=== PATIENT | male | born 1940 | race Caucasian/White ===

== ENCOUNTER 2017-04-12 08:09 | Observation (INO) | payer OTHER ==
[~2017-04-12] VITALS: Ht 185.4 cm; Wt 99.8 kg
[2017-04-12] VITALS (13 sets, daily range): BP systolic 104–152; BP diastolic 46–83
[~2017-04-12 08:09] MED LIST: ALLOPURINOL 30300 M2 PO; AMLODIPINE-BEN1 EACH PO; ASPIRIN325 PO; BRILINTA90 MG PO; IMDUR 30 MG TAB30 M1 PO; IRON325 PO; LOPRESSOR25 PO; NITROGLYCERIN0.4 MG SUBLING; PLAVIX 75 MG TA75 M1 PO; PROSCAR 5MG TABL5 MG PO; PROTONIX 20 MG20 M1 PO; RANEXA1000 MG PO; TERAZOSIN HCL10 MG PO; TYLENOL325 MG PO; ZETIA10 MG PO
[2017-04-12 08:56] LABS: HEMOGLOBIN 12.9 gm/dL (14.0-18.0); WBC 4.2 thou/uL (4.0-11.0)
[2017-04-12 08:59] LABS: ANION GAP 9 mmol/L (7-16); BUN 13 mg/dL (7-18); CALCIUM 8.6 mg/dL (8.5-10.1); CHLORIDE 107 mmol/L (98-107); CO2 26 mmol/L (21-32); CREATININE 1.2 mg/dL (0.6-1.3); GLUCOSE 99 mg/dL (70-99); HEMATOCRIT 38.5 % (42.0-52.0); MCH 28.5 pg (26.0-34.0); MCHC 33.5 g/dL (28.0-37.0); MCV 85.2 fL (80.0-100.0); MPV 7.9 fl. (7.2-11.1); POTASSIUM 3.8 mmol/L (3.5-5.1); RBC 4.52 mil/uL (4.50-6.00); RDW-CV 15.4 % (10.5-14.5); SODIUM 142 mmol/L (136-145)
[2017-04-12 09:02] LABS: APTT 25.2 Seconds (25.0-31.3)
[2017-04-12] MEDS ORDERED: PLAVIX 75 MG TA75 M1 PO (09:09)
[2017-04-12 09:11] LABS: ALBUMIN 3.7 g/dL (3.4-5.0); ALKALINE PHOSPHATASE 84 U/L (46-116); CHOLESTEROL 198 mg/dL (<200); HDL CHOLESTEROL 38 mg/dL (>40); LDL CHOLESTEROL 129 mg/dL (<100); SGOT 13 U/L (15-37); SGPT 17 U/L (30-65); TC:HDL 5.2 Ratio (Not establshd); TOTAL BILIRUBIN 0.4 mg/dL (<0.1-1.0); TOTAL PROTEIN 7.8 g/dL (6.4-8.2); TRIGLYCERIDE 158 mg/dL (<150); VLDL 32 mg/dL (<40)
[2017-04-12 09:16] LABS: SERUM ASSESSMENT Clear
--- NOTE | 2017-04-12 12:14 | NUR ---
PT ARRIVED TO THE FLOOR FROM ORTHOTIC/PROSTHETIC CLINICIAN AT 1127. PT IS A&O X4 W/O C/O PAIN OR DISCOMFORT. PT VSS ON ROOM AIR. PT ORIENTED TO UNIT AND SERVICES, FOOD AND DRINK OFFERED. PT EDUCATED ON POST PROCEDURE PROTOCOL AND VERBALIZES UNDERSTANDING. PROCEDURE SITE INTACT AND NO S/S OF BLEEDING. NURSING ASSESSMENT AND MEDICATION REQ. COMPLETED AND CHARTED. NURSING WILL CONTINUE TO MONITOR.
--- NOTE | 2017-04-12 15:48 | EKG ---
[place] [address] ELECTROCARDIOGRAM REPORT Name: RAVI FALK Room: [address] IN M.R.#: [id number] Admission: 04/12/17 Attend Phys: Jose Haider MD, Discharge: Date of : 38 Report #: [id number] THIS REPORT FOR: //name// [facility] Test Date: 2017-04-12 Test Time: 08:58:02 Pat Name: RAVI FALK Department: Room: [facility] Gender: M Stitchdowns Toe Former: : 1940 Requested By: Jose Haider Order Number: [id number] Liliya MD: Jose Haider Measurements Intervals [place] Rate: 63 P: 13 [place]: 175 QRS: 17 QRSD: 94 T: 58 QT: 404 QTc: 414 Interpretive Statements Sinus rhythm Low voltage, extremity leads Electronically Signed On 04-12-2017 15:48:26 DIE STORAGE WORKER by Jose Haider [email or web address] <ELECTRONICALLY SIGNED> By: Jose Haider MD, [facility] 04/12/17 1548 0858 0858 Jose Haider MD, FACC /EPI
--- NOTE | 2017-04-12 15:54 | EKG ---
[place] [address] ELECTROCARDIOGRAM REPORT Name: RAVI FALK Room: [address] IN M.R.#: [id number] Admission: 04/12/17 Attend Phys: Jose Haider MD, Discharge: Date of : 38 Report #: [id number] THIS REPORT FOR: //name// [facility] Test Date: 2017-04-12 Test Time: 14:11:06 Pat Name: RAVI FALK Department: Room: [facility] Gender: M Monotype Caster: : 1940 Requested By: Jose Haider Order Number: [id number] Liliya MD: Jose Haider Measurements Intervals [place] Rate: 59 P: -7 [place]: 175 QRS: -2 QRSD: 85 T: 70 QT: 411 QTc: 408 Interpretive Statements Sinus rhythm Low voltage, extremity leads Compared to ECG 12/27/2016 09:03:33 No significant changes Electronically Signed On 04-12-2017 15:54:30 DRYWALL CARRIER by Jose Haider [email or web address] <ELECTRONICALLY SIGNED> By: Jose Haider MD, [facility] 04/12/17 1554 141 141 Jose Haider MD, FAC /EPI
--- NOTE | 2017-04-12 18:46 | NUR ---
PT CONTINUES TO BE A&O X4 CALM AND COOPERATIVE. PT HAS AHD NO C/O PAIN OR DISTRESS, VSS. PT CATH SITE LOOKS UNREMARKABLE WITH NO DRAINAGE AND SURROUNDING TISSUE SOFT. NURSING WILL CONTINUE TO MONITOR.
[2017-04-13 00:02] VITALS: BP 113/59
--- NOTE | 2017-04-13 01:39 | NUR ---
ASSUMED CARE OF PT AT 1900. PT IS ALERT AND ORIENTED. VSS. PERRLA. NO COMPLAINTS OF CHEST PAIN. PT IS IN SINUS RYTHM ON THE TELEMETRY. PT IS RESTING COMFORTABLY IN BED. RESPIRATIONS ARE EVEN AND NONLABORED. WILL CONTINUE TO MONITOR PT.
[2017-04-13 04:05] VITALS: BP 110/60
[2017-04-13 05:36] LABS: HEMATOCRIT 32.8 % (42.0-52.0); HEMOGLOBIN 11.2 gm/dL (14.0-18.0); MCH 28.9 pg (26.0-34.0); MCHC 34.2 g/dL (28.0-37.0); MCV 84.7 fL (80.0-100.0); MPV 7.9 fl. (7.2-11.1); RBC 3.87 mil/uL (4.50-6.00); RDW-CV 15.1 % (10.5-14.5); WBC 4.3 thou/uL (4.0-11.0)
[2017-04-13 05:56] LABS: CALCIUM 8.4 mg/dL (8.5-10.1); CREATININE 1.2 mg/dL (0.6-1.3); POTASSIUM 4.1 mmol/L (3.5-5.1); TROPONIN-I LEVEL 0.2 ng/mL (<0.06)
[2017-04-13 08:00] VITALS: BP 122/66
[2017-04-13 10:00] VITALS: BP 119/63
[2017-04-13 10:16] VITALS: BP 119/63
--- NOTE | 2017-04-13 14:06 | NUR ---
ORDER RECEIVED TO DISCAHRGE CISCO TO SELF CARE AT HOME. MED REC, MEDICATION EDUCATION, STROKE EDUCATION, AMD NEED FOR FOLLOW UP APPOINTMENTS WITH PRIMARY AND CARDIOLOGY COVERED AND STATED UNDERSTOOD BY CISCO. IV AND TELEMTRY REMOVED AND CISCO AMBULATED TO AWAITNG CAR WITH SPOUSE PRESENT. DC TIME OF 12:10. HOURLY ROUNDING COMPLETED FOR PATIENT SAFETY.
--- NOTE | 2017-04-14 11:24 | CARD ---
[address] [address] CARDIAC CATH REPORT Name: RAVI FALK Shanna Room: [address] [place] Mariee#: [id number] Admission: 04/12/17 Attend Phys: Jose Haider MD, Discharge: 04/13/17 Date of : 39 Report #: [id number] THIS REPORT FOR: //name// APPROVED REPORT Patient Details Patient Status: Out-Patient Room #: The patient is a 76 year-old male Event Personnel Jose Haider Athlete Manager, Kay Cabello RN Business Project Manager, Eugenia Harris Monitor, Prisca Paige RTR Scrub Procedures Performed Art Access - L femoral artery* , Left Heart Catheterization, Selective Right and Left Coronary Angiography fractional flow reserve calculated pertinent to a moderately severe tubular mid right coronary stenosis, PTCA with Stenting Indication Unstable angina Risk Factors Hypercholesterolemia, Hypertension Admission/Lab Medications/Medications given during procedure Platelet Aff. Inhib., Angiomax bolus and infusion Procedure Narrative The patient was brought electively to the Cardiac Catheterization Laboratory and was prepped and draped in a sterile manner. The left femoral was infiltrated with 1% Lidocaine subcutaneous anesthesia. A [place] 6 FR sheath was inserted into the left femoral artery. Coronary angiography was performed using coronary diagnostic catheters. The right coronary system was accessed and visualized with a Diagnostic JR 4 6FR catheter. The left coronary system was accessed and visualized with a Diagnostic JL 4 6FR catheter. The left ventricle was accessed and visualized with a Diagnostic catheter. Left ventricular/Aortic Valve gradient assessed . Left ventriculogram was performed in [place] projection. Pre-demployment femoral angiogram was performed . Closure device was deployed with a 6 Fr Angioseal. The patient tolerated the procedure well and there were no complications associated with the procedure. Intraoperative [place] [address] CARDIAC CATH REPORT Name: RAVI FALK Shanna Room: [address] [place] Mariee#: [id number] Admission: 04/12/17 Attend Phys: Jose Haider MD, Discharge: 04/13/17 Date of : 39 Report #: [id number] Sedation start time: 09:54 Case end Time: 11:01 Fentanyl 25 mcg Versed 1 mg Fluoro Time: 9.0 minutes Dose: DAP 869808 cGycm2 1453.79 mGy Contrast Type and Amount: Visipaque 330 ml Diagnostic Cath Left Main 0% narrowing LAD Widely patent mid LAD stents with 40% distal LAD narrowing Circumflex Widely patent mid circumflex stents with 75% very distal circumflex narrowing Right Coronary Dominant vessel with 75% tubular mid vessel narrowing and 50% narrowing at the acute margin Left Ventriculography The left ventricle is normal in size with normal contractility. The left ventricular ejection fraction is estimated to be 55%. There is no mitral insufficiency. IVUS Anticoagulation was achieved with Heparin. Fractional Flow [place] was performed on the mid right coronary artery vessel. A 6 Italian JR4 Guide Catheter was used to engage the ostium. IVUS Findings Fractional flow reserve was .81-83 after a short course of adenosine infusion; the patient did not tolerate adenosine well and the extended infusion was truncated. Hemodynamics The aortic pressure is 144/62 mmHg with a mean of mmHg. The left ventricular pressure is 145/6 mmHg with a mean of mmHg. The left ventricular end diastolic pressure is 16 mmHg. There was no gradient across the aortic valve upon pullback. PCI Technique Lesion Anticoagulation was achieved with Heparin. Percutaneous coronary intervention was performed on the proximalmid right coronary artery. The lesion stenosis prior to intervention was 75% with JORDYN flow. A 6F JR 4.0 Guide Catheter was used to engage the RCA ostium. A Pressure Wire 175cm Interventional Guidewire was used [place] [address] CARDIAC CATH REPORT Name: RAVI FALK Room: [address] [place]#: [id number] Admission: 04/12/17 Attend Phys: Jose Haider MD, Discharge: 04/13/17 Date of : 39 Report #: [id number] BALLOON DILATION A Balloon catheter Trek RX 2.5 X 20 was inserted and inflated up to 14.00atm for 14seconds. STENT DEPLOYMENT A drug-eluting stent Xience Alpine RX 2.75 x 23 was inserted and inflated up to 12.00atm for 16seconds. Additional Inflation: 14.00atm for 14seconds. Final angiography reveals 0 % stenosis with JORDYN 3 flow. PCI Technique Lesion The lesion stenosis prior to intervention was mid right coronary artery% with JORDYN 6 Italian JR4 flow. BALLOON DILATION A Balloon catheter Fractional flow reserve was .81-83 after a short course of adenosine infusion; the patient did not tolerate adenosine well and the extended infusion was truncated. was inserted and inflated up to beto for seconds. Conclusion #1 significant coronary artery disease characterized by following: A widely patent mid LAD stents with 40% distal LAD narrowing, B widely patent mid circumflex stents with 75% very distal circumflex narrowing, C dominant right coronary artery with 75% proximalmid vessel narrowing and 50% narrowing at the acute margin #2 borderline abnormal fractional flow reserve calculated pertinent to the proximalmid right coronary stenosis with a minimum value 0.81 with a truncated infusion of adenosine, #3 normal left ventricular systolic function, estimate ejection fraction being 55%, #4 successful percutaneous coronary intervention with deployment of drug-eluting stent at site of 75% tubular proximalmid right coronary stenosis with 0% residual following stent deployment and JORDYN-3 flow the distal vessel. Recommendations [place] [address] CARDIAC CATH REPORT Name: RAVI FALK Room: [address] [place] Mariee#: [id number] Admission: 04/12/17 Attend Phys: Jose Haider MD, Discharge: 04/13/17 Date of : 38 Report #: [id number] Medications Administered Clopidogrel <ELECTRONICALLY SIGNED> By: Jose Haider MD, FACC 04/14/17 1124 1124 1124Jodom Haider MD, FAC /INF
--- NOTE | 2017-04-14 13:38 | D ---
[address] [address] DISCHARGE SUMMARY Name: RAVI FALK Room: [address] [place] Mariee#: [id number] Admission: 04/12/17 Attend Phys: Jose Haider MD, Discharge: 04/13/17 Date of : 39 Report #: [id number] THIS REPORT FOR: //name// CC: Jose Valenzuela DO DATE OF SERVICE: 04/13/2017 FINAL DISCHARGE DIAGNOSES: 1. Unstable angina. 2. Status post percutaneous coronary intervention to the right coronary artery on 04/12/2017. 3. Status post multiple prior percutaneous coronary intervention to the left anterior descending and circumflex. 4. Multivessel coronary artery disease. 5. Benign prostatic hypertrophy. 6. Hyperlipoproteinemia. 7. Hypertension. 8. Asthma allergy. PROCEDURES: 04/12/2017 - left heart catheterization, left ventriculography, selective coronary arteriography, fractional flow reserve calculated pertinent to right coronary lesion and percutaneous coronary intervention with deployment of drug-eluting stent at the site of 75% tubular mid right coronary artery stenosis. The patient is a very pleasant 76-year-old male with underlying hypertension, hypercholesterolemia. He has a history of multivessel coronary artery disease, status post remote stenting of the LAD and circumflex. More recently, he has noted increasing episodes of chest discomfort and dyspnea with exertion compatible with angina following an unstable course. He has been participating in cardiac rehabilitation activities regularly. He does have some dyspnea in the setting of his obstructive airways disease. He underwent cardiac catheterization on 04/12/2017 which revealed tubular 75% mid right coronary stenosis with FFR calculated with a minimal value of 0.81 with the test being truncated by virtue of marked dyspnea on adenosine infusion. Given the clinical history and the borderline evidence by fractional flow reserve, I elected to proceed with intervention of the right coronary artery, deploying 1 drug-eluting stent in mid right coronary with 0% residual narrowing. The previously deployed stents in the LAD and circumflex were widely patent. The patient did well post-procedurally and there was good hemostasis at the femoral site of catheterization. Lab revealed hemoglobin 11.2, white blood cell count 4300 with 201,000 platelets. Sodium 144, potassium 4.1, BUN 12, [place] [address] DISCHARGE SUMMARY Name: RAVI FALK Room: [address] [place] Mariee#: [id number] Admission: 04/12/17 Attend Phys: Jose Haider MD, Discharge: 04/13/17 Date of : 39 Report #: [id number] creatinine 1.2. Troponin peaked at 0.29. The patient was discharged to home on 04/13/2017 on the following medications: Clopidogrel or Plavix 75 mg daily with a 600 mg dose given jose-procedurally, Zetia 10 mg daily, Proscar 5 mg daily, metoprolol 25 mg daily, p.r.n. sublingual nitroglycerin, pantoprazole 40 mg b.i.d., terazosin 10 mg at bedtime, and p.r.n. sublingual nitroglycerin. The patient is scheduled to return to see me in followup on 05/16/2017 at 1400. He is discharged home in stable condition on the aforementioned medications with followup as iterated above. <ELECTRONICALLY SIGNED> By: Jose Haider MD, FACC 04/14/17 1338 1600 [id number] Haider MD, FAC /nt
--- NOTE | 2017-04-14 14:09 | EKG ---
[place] [address] ELECTROCARDIOGRAM REPORT Name: RAVI FALK Room: [address] M.R.#: [id number] Admission: 04/12/17 Attend Phys: Jose Haider MD, Discharge: 04/13/17 Date of : 39 Report #: [id number] THIS REPORT FOR: //name// [facility] Test Date: 2017-04-13 Test Time: 06:40:42 Pat Name: RAVI FALK Department: Room: [facility] Gender: M Paving Supervisor: EKATERINA : 1940 Requested By: Jose Haider Order Number: [id number] Liliya MD: Jose Haider Measurements Intervals [place] Rate: 59 P: 12 [place]: 168 QRS: 16 QRSD: 88 T: 70 QT: 426 QTc: 422 Interpretive Statements Sinus rhythm Low voltage, extremity leads Compared to ECG 04/12/2017 14:11:06 No significant changes Electronically Signed On 04-14-2017 14:09:13 CUPOLA MELTER HELPER by Jose Haider [email or web address] <ELECTRONICALLY SIGNED> By: Jose Haider MD, [facility] 04/14/17 1409 0640 Jose Haider MD, [facility] /EPI
== END 2017-04-13 12:05 | disposition home or self-care (01) ==
LOC: M.CL 08:09 → M.2W 11:16 → M.TBA-CV 11:16 → M.2W 11:20
PROVIDERS: ADMIT Internal Medicine
DX: I25.119 Atherosclerotic heart disease of native coronary artery with unspecified angina pectoris (principal); I25.110 Atherosclerotic heart disease of native coronary artery with unstable angina pectoris; I10 Essential (primary) hypertension; E78.5 Hyperlipidemia, unspecified; J43.1 Panlobular emphysema; N40.0 Benign prostatic hyperplasia without lower urinary tract symptoms; J45.909 Unspecified asthma, uncomplicated; Z98.890 Other specified postprocedural states; Z87.891 Personal history of nicotine dependence; Z95.5 Presence of coronary angioplasty implant and graft

== ENCOUNTER 2018-03-27 11:08 | Inpatient (IN) | payer OTHER ==
[~2018-03-27] VITALS: Ht 185.4 cm; Wt 99.3 kg
[2018-03-27] VITALS (13 sets, daily range): BP systolic 125–173; BP diastolic 62–84
[2018-03-27] MEDS ORDERED: CIPRO500 MG PO (13:09)
--- NOTE | 2018-03-27 13:36 | NUR ---
PT TO UNIT VIA EMS AT APPROX 1245. PT IS ALERT AND ORIENTED, TELE TRACKING NSR AND ALL VSS ON ROOM AIR. PT CURRENTLY DENYING CP, STATES GI COCKTAIL GIVEN AT [facility]SH RELIEVED PAIN. TACK CLEANER NOTIFIED OF PT ADMIT AT 1330. WILL AWAIT FURTHER ORDERS. INSTRUCTED ON USE OF CALL LIGHT ANDEDUCATED ON SAFETY AND PLAN OF CARE. PLEASE SEE ADMISSION ASSESSMENT FOR ADDITIONAL INFORMATION. WILL CONTINUE TO MONITOR
--- NOTE | 2018-03-27 16:24 | H ---
[place] [address] HISTORY AND PHYSICAL Name: RAVI FALK Room: [address] IN .Srinivas.#: [id number] Admission: 03/27/18 Attend Phys: Jose Haider MD, Discharge: Date of : 38 Report #: [id number] THIS REPORT FOR: //name// CC: Jose Mustafa [facility] DATE OF SERVICE: 03/27/2018 HISTORY OF PRESENT ILLNESS: The patient is a 77-year-old male with known coronary artery disease, status post prior multivessel stenting, most recently in 04/2017 to the right coronary artery. He awakened this morning with severe central chest discomfort and profuse diaphoresis. He sought assistance in the [facility] Emergency Room for relief, came after administration of nitrates and GI cocktail. He had no early enzymatic or electrocardiographic evidences of acute injury. The pain remitted after nitrates and has not recurred. He does have risk factors for coronary artery disease including prior cigarette smoking, hypertension and hypercholesterolemia. MEDICATIONS: Have included Plavix 75 mg daily, Zetia 5 mg daily, metoprolol 12.5 mg b.i.d., pantoprazole 40 mg daily, terazosin 10 mg daily. 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 SOCIAL HISTORY: The patient is . He has a significant antecedent cigarette smoking history. FAMILY HISTORY: Negative for premature coronary artery disease. REVIEW OF SYSTEMS: Remarkable for the following positives, GASTROINTESTINAL: He notes chronic gastroesophageal reflux with pain different from that he experienced this morning. PULMONARY: He notes chronic dyspnea and recent bronchitis in the setting of obstructive airways disease. Remainder is unremarkable. PHYSICAL EXAMINATION: GENERAL: Demonstrates an elderly male who is alert, cheerful and in no acute distress. VITAL SIGNS: Blood pressure 130/70, pulse rate 74, respirations 18 per minute. NECK: Jugular venous pressure is normal. CHEST: Reveals decreased breath sounds with occasional rhonchi. CARDIAC: Reveals normal first and second heart sounds [place] [address] HISTORY AND PHYSICAL Name: RAVI FALK Room: [address] IN [facility]#: [id number] Admission: 03/27/18 Attend Phys: Jose Haider MD, Discharge: Date of : 38 Report #: [id number] ABDOMEN: Mildly obese. EXTREMITIES: Without edema with intact femoral and radial pulses. RADIOLOGIC DATA: Initial EKG reveals no acute changes suggesting injury. LABORATORY DATA: Reveals sodium 140, potassium 3.6, BUN 12, creatinine 1.2. Troponin 0.012. BNP 53. Protime 12.7, INR 1.1. Hemoglobin 13.7, platelets 171,000. IMPRESSION: 1. Probable acute coronary syndrome. 2. Coronary artery disease, status post multivessel stenting. 3. Chronic obstructive pulmonary disease. 4. Hypertension. 5. Hyperlipidemia. 6. Prolonged antecedent cigarette smoking history. RECOMMENDATIONS: Given the aforementioned clinical scenario, I would recommend urgent catheterization with consideration of intervention contingent on the findings of the study. This has been discussed with the patient and family. <ELECTRONICALLY SIGNED> By: Jose Haider MD, FACC 03/27/18 1624 1423 1438Jodom Haider MD, FACC /nt
[2018-03-28] VITALS (7 sets, daily range): BP systolic 127–144; BP diastolic 64–72
[2018-03-28 05:12] LABS: HEMATOCRIT 35.9 % (42.0-52.0); HEMOGLOBIN 12.1 gm/dL (14.0-18.0); MCH 29.5 pg (26.0-34.0); MCHC 33.8 g/dL (28.0-37.0); MCV 87.1 fL (80.0-100.0); MPV 8.3 fl. (7.2-11.1); RBC 4.12 mil/uL (4.50-6.00); RDW-CV 14.4 % (10.5-14.5); WBC 4.6 thou/uL (4.0-11.0)
[2018-03-28 05:32] LABS: ALKALINE PHOSPHATASE 69 U/L (46-116); ANION GAP 8 mmol/L (7-16); BUN 10 mg/dL (7-18); CALCIUM 8.5 mg/dL (8.5-10.1); CHLORIDE 107 mmol/L (98-107); CHOLESTEROL 116 mg/dL (<200); CO2 27 mmol/L (21-32); CREATININE 1.1 mg/dL (0.6-1.3); GLUCOSE 93 mg/dL (70-99); HDL CHOLESTEROL 29 mg/dL (>40); LDL CHOLESTEROL 74 mg/dL (<100); POTASSIUM 4.1 mmol/L (3.5-5.1); SGOT 14 U/L (15-37); SGPT 19 U/L (30-65); SODIUM 142 mmol/L (136-145); TOTAL BILIRUBIN 0.5 mg/dL (<0.1-1.0); TOTAL PROTEIN 6.4 g/dL (6.4-8.2); TRIGLYCERIDE 69 mg/dL (<150); TROPONIN-I LEVEL <0.06 ng/mL (<0.06); VLDL 14 mg/dL (<40)
[2018-03-28 05:34] LABS: SERUM ASSESSMENT Clear
--- NOTE | 2018-03-28 08:01 | NUR ---
RECEIVED REPORT AND ASSUMED CARE AT 1900. VSS. CARDIAC MONITORING IN PLACE. PT DENIES ANY COMPLAINTS OF PAIN. PT ON BEDREST POST CATH UNTIL 0030. ON RA. ASSESSMENT COMPLETED CHARTED.DISCUSSED PLAN OF CARE WITH PT, VERBALIZED UNDERSTANDING. GROIN ACCESS MONITORED, CLEAN/DRY/INTACT DRESSING, NO HEMATOMA. HOURLY ROUNDING COMPLETED AND ALL NEEDS MET.
--- NOTE | 2018-03-28 11:23 | NUR ---
ASSUMED CARE OF PATIENT THIS AM AT 0730. PATIENT IS ALERT AND ORIENTED X 4. HE DENIES PAIN AND DISCOMFORT. LEFT GROIN SITE IS D&I AND WITHOUT HEMATOMA. TELE SHOWS NSR. DR DOZIER IN TO ROUND AND DISCHARGE ORDERS WRITTEN. SALINE LOCK AND TELE MONITOR DISCONTINUED AND PATIENT IS UP IN THE ROOM.
--- NOTE | 2018-03-28 18:07 | EKG ---
[place] [address] ELECTROCARDIOGRAM REPORT Name: DEYARAVI Otero Room: [address] IN M.R.#: [id number] Admission: 03/27/18 Attend Phys: Jose Haider MD, Discharge: 03/28/18 Date of : 38 Report #: [id number] THIS REPORT FOR: //name// [facility] Test Date: 2018-03-28 Test Time: 08:55:02 Pat Name: RAVI FALK Department: Room: [address] Gender: M Fulfillment Associate: : 1940 Requested By: Jose Haider Order Number: [id number] Liliya MD: Darryl Franklin Measurements Intervals [place] Rate: 72 P: 7 [place]: 166 QRS: 35 QRSD: 84 T: 52 QT: 379 QTc: 415 Interpretive Statements Sinus rhythm Low voltage, extremity leads Compared to ECG 04/13/2017 06:40:42 No significant changes Electronically Signed On 03-28-2018 18:06:55 CRYPTOLOGIC LINGUIST by Darryl Franklin [email or web address] <ELECTRONICALLY SIGNED> By: Darryl Franklin MD, [facility] 03/28/18 1806 0855 0855 Darryl Franklin MD, [facility] /EPI
--- NOTE | 2018-03-30 16:14 | D ---
[address] [address] DISCHARGE SUMMARY Name: RAVI FALK Room: [address] IN M.R.#: [id number] Admission: 03/27/18 Attend Phys: Jose Haider MD, Discharge: 03/28/18 Date of : 38 Report #: [id number] THIS REPORT FOR: //name// CC: Jose Valenzuela DATE OF SERVICE: 03/28/2018 FINAL DISCHARGE DIAGNOSES: 1. Unstable angina. 2. Coronary artery disease, status post prior percutaneous coronary intervention with stenting of the left anterior descending coronary artery on 03/27/2018. 3. Hypertension. 4. Hyperlipoproteinemia. 5. Emphysema. PROCEDURES: 03/27/2018 -- left heart catheterization, left ventriculography, selective coronary arteriography, percutaneous coronary intervention with deployment of drug-eluting stent at site of 80% proximal LAD stenosis. The patient is a very pleasant 77-year-old male with underlying hypertension, hyperlipidemia and chronic obstructive pulmonary disease. He has a history of complex coronary artery disease, status post prior multivessel stenting. He presented to [facility] Emergency Room yesterday morning with severe chest pain, nausea and diaphoresis. He had no acute EKG changes, it was felt that he had unstable angina. He was transferred urgently to us and underwent cardiac catheterization, which revealed 80% proximal LAD stenosis with hypokinesis of the anterior wall. He also had tandem 70% proximal and 75%-80% mid right coronary stenoses. Given the clinical findings and the abnormality on left ventriculography, I elected to proceed with percutaneous intervention to the LAD, deploying one 3.0 x 15 mm Xience Jagruti drug-eluting stent in the proximal LAD with 10% residual narrowing and JORDYN 3 flow of the distal vessel. He did well post-procedurally with good hemostasis at the left femoral site of catheterization. Laboratory data on 03/28/2018 revealed sodium 142, potassium 4.1, BUN 10, creatinine 1.1. Hemoglobin 12.1, white blood cell count 4600 with 171,000 platelets. Troponin less than 0.06. Cholesterol 116, triglycerides 69, HDL 29, LDL 74 mg percent. He was discharged to home on 03/28/2018 on the following medications: [place] [address] DISCHARGE SUMMARY Name: RAVI FALK Room: [address]#: [id number] Admission: 03/27/18 Attend Phys: Jose Haider MD, Discharge: 03/28/18 Date of : 38 Report #: [id number] 1. Ciprofloxacin 500 mg b.i.d. for additional 7 days in the context of recent acute bronchitis. 2. Clopidogrel 75 mg daily with 600 mg dose given periprocedurally. 3. Zetia 5 mg daily. 4. Finasteride or Proscar 5 mg daily. 5. Metoprolol tartrate 25 mg daily. 6. Pantoprazole 40 mg b.i.d. 7. Terazosin 10 mg at bedtime. 8. P.r.n. sublingual nitroglycerin. We will talk to him about scheduling for a staged intervention of the right coronary artery in April as discussed in detail with the patient and family. Thus, he is discharged home in stable condition on the aforementioned medications with followup as iterated above. His continuing care will be with Dr. Ramsey Valenzuela in [place]. <ELECTRONICALLY SIGNED> By: Jose Haider MD, FACC 03/30/18 1614 0935 [id number] Haider MD, FACC /nt
--- NOTE | 2018-03-31 12:23 | CARD ---
[address] [address] CARDIAC CATH REPORT Name: RAVI FALK Room: [address] IN .Srinivas.#: [id number] Admission: 03/27/18 Attend Phys: Jose Haider MD, Discharge: 03/28/18 Date of : 39 Report #: [id number] THIS REPORT FOR: //name// APPROVED REPORT Study performed: 03/27/2018 15:07:51 Patient Details The patient is a 77 year-old male Event Personnel Jose Haider Media Relations Coordinator, Kay Cabello RN RN, Savanna Alvarez RTR Monitor, Parvez Bosch Scrub, Clem Whitehead Scryasmin Procedures Performed Art Access - L femoral artery* Left Heart Cath w/or w/o Coronaries [facility] w/wo Plasty Single LAD Hemostasis w/ Angioseal Indication Unstable angina Risk Factors Hypercholesterolemia, Hypertension Previous Procedures/Diagnoses Previous PCI Admission/Lab Medications/Medications given during procedure Platelet Aff. Inhib., Angiomax bolus and infusion Procedure Narrative The patient was brought urgently to the Cardiac Catheterization Laboratory and was prepped and draped in a sterile manner. The left femoral was infiltrated with 2% Lidocaine subcutaneous anesthesia. A [place] 6 FR sheath was inserted into the right femoral artery. Coronary angiography was performed using coronary diagnostic catheters. The right coronary system was accessed and visualized with a Diagnostic 6Fr JR4 catheter. The left coronary system was accessed and visualized with a Diagnostic 6Fr JL4 catheter. The left ventricle was accessed and visualized with a Diagnostic 6Fr straight pigtail catheter. Left ventricular/Aortic Valve gradient assessed via catheter pullback. An aortogram of the [place] was performed. Closure device was deployed with a Fr Angioseal STS 6Fr. Hemostasis was obtained with manual pressure following sheath [place] [address] CARDIAC CATH REPORT Name: RAVI FALK Room: [address]#: [id number] Admission: 03/27/18 Attend Phys: Jose Haider MD, Discharge: 03/28/18 Date of : 39 Report #: [id number] complications. The patient tolerated the procedure well and there were no complications associated with the procedure. There was no hematoma. Intraoperative Conscious Sedation Sedation start time: 1510 Case end Time: 1603 No sedation given. Fluoro Time: 12.4 minutes Dose: DAP 61042 cGycm2 66.2 mGy Contrast Type and Amount: Visipaque 350 ml Diagnostic Cath Left Main 0% narrowing LAD 80% proximal stenosis with 30% mid and distal narrowings Diagonal 1 70% narrowing of the small vessel Diagonal 2 40 Percent narrowing Circumflex 40 Percent mid vessel narrowing with 40% second marginal narrowing Right Coronary Dominant vessel with tandem 75% proximal stenoses Left Ventriculography The left ventricle is normal in size with contractility. The left ventricular ejection fraction is estimated to be 55. Left ventricular wall motion abnormalities are present. There is no mitral insufficiency. Mild anterior hypokinesis is noted Hemodynamics The aortic pressure is 157/70 mmHg with a mean of 103 mmHg. The left ventricular pressure is 150/0 mmHg with a mean of mmHg. The left ventricular end diastolic pressure is 18 mmHg. There was no gradient across the aortic valve upon pullback. PCI Technique Lesion Percutaneous coronary intervention was performed on the proximal left anterior descending artery segment. The lesion stenosis prior to intervention was 80% with JORDYN 3 flow. A 6FR XB 3.5 100CM Guide Catheter was used to engage the ostium. A ProwaterFlex 180CM Interventional Guidewire was used to cross the lesion. BALLOON DILATION A Balloon catheter NC Trek RX 3.0 X 12 was inserted and inflated up to 16.00atm for 10seconds. Additional Inflation: 18.00atm for 13seconds. [place] [address] CARDIAC CATH REPORT Name: DEYARAVI Room: [address]#: [id number] Admission: 03/27/18 Attend Phys: Jose Haider MD, Discharge: 03/28/18 Date of : 39 Report #: [id number] STENT DEPLOYMENT A drug-eluting stent Xience Jagruti 3.0X15mm was inserted and inflated up to 15.00atm for 15seconds. Additional Inflation: 17.00atm for 13seconds. POST STENT DEPLOYMENT BALLOON DILATION A Balloon catheter NC Trek RX 3.0 X 8 was inserted and inflated up to 18.00atm for 13seconds. Additional Inflation: 16.00atm for 10seconds. Additional Inflation: 20.00atm for 11seconds. Final angiography reveals 0 % stenosis with JORDYN 3 flow. Conclusion #1 significant coronary artery disease characterized by the following: A 80% proximal LAD stenosis with 30% mid and distal narrowing B 40% mid circumflex proximal narrowing with 40% second marginal narrowing C tandem 75% proximal right coronary stenosis, this being a dominant vessel #2 normal left ventricular systolic function, estimate ejection fraction being 55% with mild anterior hypokinesis #3 modest elevation of left ventricular end-diastolic pressure at rest #4 successful percutaneous coronary intervention with deployment of a drug-eluting stent at the site of 80% proximal LAD stenosis with 0% residual narrowing and JORDYN-3 flow the distal vessel Recommendations Cardiac Risk Reduction Program Aggressive Medical Therapy Medications Administ[place] [address] CARDIAC CATH REPORT Name: RAVI FALK Room: [address] IN M.R.#: [id number] Admission: 03/27/18 Attend Phys: Jose Haider MD, Discharge: 03/28/18 Date of : 39 Report #: [id number] Diagnostic Cath Approved by: Jose Haider MD Date/Time: 03/31/2018 12:22:06 <ELECTRONICALLY SIGNED> By: Jose Haider MD, [facility] 03/31/18 1223 122 122Jose Haider MD, [facility] /INF
== END 2018-03-28 12:10 | disposition home or self-care (01) | DRG 246 ==
LOC: M.2W 11:08
PROVIDERS: ADMIT Internal Medicine
PROC: 4A023N7 Measurement of Cardiac Sampling and Pressure, Left Heart, Percutaneous Approach (ICD-10-PCS; principal; 2018-03-27)
PROC: 027034Z Dilation of Coronary Artery, One Artery with Drug-eluting Intraluminal Device, Percutaneous Approach (ICD-10-PCS; principal; 2018-03-27)
PROC: B2111ZZ Fluoroscopy of Multiple Coronary Arteries using Low Osmolar Contrast (ICD-10-PCS; principal; 2018-03-27)
PROC: B2151ZZ Fluoroscopy of Left Heart using Low Osmolar Contrast (ICD-10-PCS; principal; 2018-03-27)
DX: I25.110 Atherosclerotic heart disease of native coronary artery with unstable angina pectoris (principal); I50.33 Acute on chronic diastolic (congestive) heart failure; I11.0 Hypertensive heart disease with heart failure; E78.5 Hyperlipidemia, unspecified; E78.00 Pure hypercholesterolemia, unspecified; J43.9 Emphysema, unspecified

== ENCOUNTER 2018-04-18 08:30 | Observation (INO) | payer OTHER ==
[~2018-04-18] VITALS: Ht 185.4 cm; Wt 99.8 kg
[2018-04-18] VITALS (16 sets, daily range): BP systolic 123–169; BP diastolic 58–84
--- NOTE | ~2018-04-18 | H ---
[address] [address] HISTORY AND PHYSICAL Name: RAVI FALK Room: [address] [place] Mariee#: [id number] Admission: 04/18/18 Attend Phys: Jose Haider MD, Discharge: 04/19/18 Date of : 39 Report #: [id number] THIS REPORT FOR: //name// For History and Physical please refer to the dictated consultation note from 03/27/18 note in the patient's medical record. By: 1519[facility] Staff MORIAH /DEYSI
[~2018-04-18 08:30] MED LIST changes: +CIPRO500 MG PO
[2018-04-18 09:21] LABS: HEMATOCRIT 39.7 % (42.0-52.0); HEMOGLOBIN 13.4 gm/dL (14.0-18.0); MCH 29.1 pg (26.0-34.0); MCHC 33.7 g/dL (28.0-37.0); MCV 86.5 fL (80.0-100.0); MPV 8.3 fl. (7.2-11.1); RBC 4.59 mil/uL (4.50-6.00); RDW-CV 14.1 % (10.5-14.5); WBC 3.8 thou/uL (4.0-11.0)
[2018-04-18 09:27] LABS: ANION GAP 10 mmol/L (7-16); BUN 12 mg/dL (7-18); CALCIUM 9.5 mg/dL (8.5-10.1); CHLORIDE 105 mmol/L (98-107); CO2 28 mmol/L (21-32); CREATININE 1.2 mg/dL (0.6-1.3); GLUCOSE 99 mg/dL (70-99); POTASSIUM 3.8 mmol/L (3.5-5.1); SODIUM 143 mmol/L (136-145)
[2018-04-18 09:32] LABS: ALBUMIN 3.9 g/dL (3.4-5.0); ALKALINE PHOSPHATASE 80 U/L (46-116); CHOLESTEROL 166 mg/dL (<200); HDL CHOLESTEROL 41 mg/dL (>40); LDL CHOLESTEROL 103 mg/dL (<100); SERUM ASSESSMENT Clear; SGOT 11 U/L (15-37); SGPT 20 U/L (30-65); TOTAL BILIRUBIN 0.4 mg/dL (<0.1-1.0); TOTAL PROTEIN 7.8 g/dL (6.4-8.2); TRIGLYCERIDE 112 mg/dL (<150); VLDL 22 mg/dL (<40)
[2018-04-18 09:42] LABS: APTT 27.7 Seconds (25.0-31.3); PROTIME 10.1 Seconds (9.20-11.50)
--- NOTE | 2018-04-18 18:50 | EKG ---
[place] [address] ELECTROCARDIOGRAM REPORT Name: RAVI FALK Room: [address] M.R.#: [id number] Admission: 04/18/18 Attend Phys: Jose Haider MD, Discharge: Date of : 39 Report #: [id number] THIS REPORT FOR: //name// [facility] Test Date: 2018-04-18 Test Time: 12:13:23 Pat Name: RAVI FALK Department: Room: [facility] Gender: M [employer] F[employer] Instructor: : 1940 Requested By: Jose Haider Order Number: [id number] Liliya MD: Darryl Franklin Measurements Intervals [place] Rate: 52 P: 12 RI: 179 QRS: 42 QRSD: 85 T: 53 QT: 440 QTc: 410 Interpretive Statements Sinus rhythm Low voltage, extremity leads Minimal ST elevation, inferior leads Baseline wander in lead(s) II,III,aVR,aVL,aVF,V1,V2,V3,V4,V5,V6 Compared to ECG 03/28/2018 08:55:02 ST (T wave) deviation now present Electronically Signed On 04-18-2018 18:49:46 SHAPING MACHINE TENDER by Darryl Franklin [email or web address] <ELECTRONICALLY SIGNED> By: Darryl Franklin MD, FACC 04/18/18 1849 1213 1213 Darryl Franklin MD, [facility] /EPI
[2018-04-19] VITALS: BP 147/73
[2018-04-19 04:00] VITALS: BP 128/67
[2018-04-19 05:06] LABS: HEMATOCRIT 36.8 % (42.0-52.0); HEMOGLOBIN 12.3 gm/dL (14.0-18.0); MCH 29.2 pg (26.0-34.0); MCHC 33.5 g/dL (28.0-37.0); MCV 87.1 fL (80.0-100.0); MPV 8.2 fl. (7.2-11.1); RBC 4.23 mil/uL (4.50-6.00); RDW-CV 13.9 % (10.5-14.5); WBC 4.8 thou/uL (4.0-11.0)
[2018-04-19 05:21] LABS: ALBUMIN 3.1 g/dL (3.4-5.0); CALCIUM 9.1 mg/dL (8.5-10.1); CREATININE 1.1 mg/dL (0.6-1.3); POTASSIUM 3.6 mmol/L (3.5-5.1); TOTAL BILIRUBIN 0.4 mg/dL (<0.1-1.0); TOTAL PROTEIN 6.6 g/dL (6.4-8.2); TROPONIN-I LEVEL 0.26 ng/mL (<0.06)
[2018-04-19 08:13] VITALS: BP 131/80
[2018-04-19 10:32] VITALS: BP 127/62
[2018-04-19 10:43] VITALS: BP 127/62
--- NOTE | 2018-04-19 10:56 | CARD ---
[address] [address] CARDIAC CATH REPORT Name: ELLARAVI RAINES Shanna Room: [address] [place] Mariee#: [id number] Admission: 04/18/18 Attend Phys: Jose Haider MD, Discharge: Date of : 39 Report #: [id number] THIS REPORT FOR: //name// APPROVED REPORT Study performed: 04/18/2018 08:47:53 Patient Details Patient Status: Out-Patient Room #: The patient is a 77 year-old male Event Personnel Jose Haider Jig Boring Machine Operator For Metal, Marylou Ascencio RN Oriental Medicine Practitioner, Savanna Alvarez RTR Monitor, Clem Whitehead Scrub Procedures Performed Art Access - R femoral artery* [place] Place w/wo Plasty Single RCA [place] Place w/wo Plasty Single LAD Hemostasis w/ Angioseal Indication Unstable angina , Positive stress test Risk Factors Hypercholesterolemia, Hypertension Admission/Lab Medications/Medications given during procedure Platelet Aff. Inhib., Angiomax Drip IV 35 ml per hr, Angiomax IV 15 mg per kg Procedure Narrative The patient was brought electively to the Cardiac Catheterization Laboratory and was prepped and draped in a sterile manner. The right femoral was infiltrated with 2% Lidocaine subcutaneous anesthesia. A [place] 6 FR sheath was inserted into the right femoral artery. Coronary angiography was performed using coronary diagnostic catheters. The right coronary system was accessed and visualized with a Diagnostic 6Fr JR4 catheter. The left coronary system was accessed and visualized with a Diagnostic 6Fr JL4 catheter. The left ventricle was accessed and visualized with a Diagnostic 6Fr straight pigtail catheter. Left ventricular/Aortic Valve gradient assessed via catheter pullback. An aortogram of the [place] was performed. Closure device was deployed with a Fr Angioseal STS 6Fr. Hemostasis was obtained with manual pressure following [place] [address] CARDIAC CATH REPORT Name: RAVI FALK Room: [address] M.R.#: [id number] Admission: 04/18/18 Attend Phys: Jose Haider MD, Discharge: Date of : 39 Report #: [id number] complications. The patient tolerated the procedure well and there were no complications associated with the procedure. There was no hematoma. Intraoperative Conscious Sedation Sedation start time: 950 Case end Time: 1058 Fentanyl 75 mcg Versed 3 mg Fluoro Time: 1601 minutes Dose: DAP 048199 cGycm2 2265 mGy Contrast Type and Amount: Visipaque 330 Diagnostic Cath Left Main 0% narrowing LAD 30% proximal LAD narrowing with 80% focal mid LAD in-stent restenosis Circumflex Nondominant vessel with 40% mid vessel narrowing Right Coronary Dominant vessel with 75% proximal 80% mid and 80% mid to distal stenosis Left Ventriculography The left ventricle is normal in size with normal contractility. The left ventricular ejection fraction is estimated to be 60%. Left ventricular wall motion abnormalities are not present. There is no mitral insufficiency. Hemodynamics The aortic pressure is 146/70 mmHg with a mean of 101 mmHg. The left ventricular pressure is 146/2 mmHg with a mean of mmHg. The left ventricular end diastolic pressure is 16 mmHg. Pullback from the left ventricle to the aorta revealed no gradient across the aortic valve. PCI Technique Lesion Percutaneous coronary intervention was performed on the proximal right coronary artery. The lesion stenosis prior to intervention was 75% with JORDYN 3 flow. A 6F JR 4.0 Guide Catheter was used to engage the ostium. A [place] 190cm Interventional Guidewire was used to cross the lesion. BALLOON DILATION A Balloon catheter Trek RX 2.5 X 12 was inserted and inflated up to 16.00atm for 12seconds[place] [address] CARDIAC CATH REPORT Name: DEYARAVI Otero [address] [id number] Admission: 04/18/18 Attend Phys: Jose Haider MD, Discharge: Date of : 39 Report #: [id number] A drug-eluting stent Xience Jagruti 2.01X12mp was inserted and inflated up to 12.00atm for 9seconds. Additional Inflation: 15.00atm for 8seconds. Additional Inflation: 16.00atm for 9seconds. POST STENT DEPLOYMENT BALLOON DILATION A Balloon catheter NC Trek RX 3.0 X 12 was inserted and inflated up to 15.00atm for 8seconds. Additional Inflation: 16.00atm for 5seconds. Final angiography reveals 0 % stenosis with JORDYN 3 flow. PCI Technique Lesion 2 Percutaneous Coronary Intervention was performed on the distal right coronary artery. The lesion stenosis prior to intervention was 80% with JORDYN 3 flow. A 6F JR 4.0 Guide Catheter was used to engage the ostium. A [place] 190cm Interventional Guidewire was used to cross the lesion. Balloon Dilation A Balloon catheter Trek RX 2.5 X 12 was inserted and inflated up to 10.00atm for 10seconds. Stent Deployment A drug-eluting stent Xience Jagruti 2.5X18mm was inserted and inflated up to 10.00atm for 10seconds. Additional Inflation: 10.00atm for 10seconds. Final angiography reveals 0 % stenosis with JORDYN 3 flow. PCI Technique Lesion 3 Percutaneous Coronary Intervention was performed on the mid right coronary artery. The lesion stenosis prior to intervention was 80% with JORDYN 3 flow. A 6F JR 4.0 Guide Catheter was used to engage the ostium. A [place] 190cm Interventional Guidewire was used to cross the lesion. Stent Deployment A drug-eluting stent Xience Jagruti 2.5X12mm was inserted and inflated up to 12.00atm for 8seconds. Additional Inflation: 12.00atm for 8seconds. Final angiography reveals 0 % stenosis with JORDYN flow. PCI Technique Lesion 4 Percutaneous Coronary Intervention was performed on the mid left anterior descending artery segment. The lesion stenosis prior to [facility] [address] [place] [address] CARDIAC CATH REPORT Name: RAVI FALK Room: [address] Genesis M.R.#: [id number] Admission: 04/18/18 Attend Phys: Jose Haider MD, Discharge: Date of : 39 Report #: [id number] intervention was 80% with JORDYN 3 flow. A 6FR XB 3.5 100CM Guide Catheter was used to engage the ostium. A [place] 190cm Interventional Guidewire was used to cross the lesion. Stent Deployment A drug-eluting stent Xience Jagruti 2.25X8mm was inserted and inflated up to 12.00atm for 8seconds. Additional Inflation: 15.00atm for 8seconds. Final angiography reveals 0 % stenosis with JORDYN 3 flow. Conclusion #1 significant coronary artery disease characterized by the following: A 0% left main coronary artery narrowing B 30% proximal LAD narrowing with 80% focal mid LAD in-stent restenosis C nondominant circumflex with widely patent stents and 40% mid vessel narrowing D dominant right coronary artery with 75% proximal 80% mid and 80% tubular mid to distal stenosis #2 normal left ventricular systolic function, estimate ejection fraction being 60% #3 successful percutaneous coronary intervention with deployment of sequential drug-eluting stents at the sites of 75% proximal 80% mid 80% mid to distal right coronary stenosis with 0% residual narrowing at all sites #5 successful percutaneous coronary intervention with deployment of drug-eluting stent at the site of 80% focal mid LAD in-stent restenosis with 0% residual narrowing and JORDYN-3 flow to the distal vessel Recommendations Cardiac Risk Reduction Program Aggressive Medical Therapy Medications [place] [address] CARDIAC CATH REPORT Name: RAVI FALK Room: [address] [place] Mariee#: [id number] Admission: 04/18/18 Attend Phys: Jose Haider MD, Discharge: Date of : 39 Report #: [id number] Diagnostic Cath Approved by: Jose Haider MD Date/Time: 04/19/2018 10:55:36 <ELECTRONICALLY SIGNED> By: Jose Haider MD, FACC 04/19/18 1056 1056 1056Jose Haider MD, FACC /INF
--- NOTE | 2018-04-19 16:39 | EKG ---
[place] [address] ELECTROCARDIOGRAM REPORT Name: RAVI FALK Room: [address] M.R.#: [id number] Admission: 04/18/18 Attend Phys: Jose Haider MD, Discharge: 04/19/18 Date of : 39 Report #: [id number] THIS REPORT FOR: //name// [facility] Test Date: 2018-04-19 Test Time: 04:02:59 Pat Name: RAVI FALK Department: Room: [facility] Gender: M Teletypesetter: PS : 1940 Requested By: Jose Haider Order Number: [id number] Liliya MD: Jose Haider Measurements Intervals [place] Rate: 58 P: -7 MS: 175 QRS: 2 QRSD: 88 T: 61 QT: 415 QTc: 408 Interpretive Statements Sinus rhythm Low voltage, extremity leads Compared to ECG 04/18/2018 12:13:23 ST (T wave) deviation no longer present Electronically Signed On 04-19-2018 16:39:08 ADJUNCT PSYCHOLOGY PROFESSOR by Jose Haider [email or web address] <ELECTRONICALLY SIGNED> By: Jose Haider MD, [facility] 04/19/18 1639 0402 0402 Jose Haider MD, [facility] /EPI
--- NOTE | 2018-04-19 16:58 | D ---
[address] [address] DISCHARGE SUMMARY Name: RAVI FALK Room: [address] Genesis Mariee#: [id number] Admission: 04/18/18 Attend Phys: Jose Haider MD, Discharge: 04/19/18 Date of : 39 Report #: [id number] THIS REPORT FOR: //name// CC: Jose Mustafa [facility] DATE OF SERVICE: 04/19/2018 FINAL DISCHARGE DIAGNOSES: 1. Unstable angina. 2. Recent abnormal stress test. 3. Hyperlipidemia. 4. Hypertension. 5. Coronary artery disease. 6. Status post multiple prior percutaneous coronary interventions. PROCEDURES: 04/18/2018 - left heart catheterization, left ventriculography, selective coronary arteriography and percutaneous coronary intervention to the right coronary artery and LAD. HOSPITAL COURSE: The patient is a very pleasant 77-year-old male with coronary artery disease and COPD. He had recently abnormal stress test and underwent stenting of the LAD. He also has significant right coronary lesions. These were approached in a staged fashion with recatheterization on 04/18/2018. The LAD stents were widely patent with the exception of short area of in-stent restenosis in the mid to distal LAD and they deployed one stent there. I deployed 3 sequential stents in the proximal, mid and mid to distal right coronary artery at the sites of 75%, 80% and 80% narrowing with 0% residual narrowing at all sites following stent deployment and JORDYN 3 flow of the distal vessel. The patient did well post-procedurally with an inconsequential increase in troponin of 0.26. Additional lab revealed sodium 144, potassium 3.6, BUN 9, creatinine 1.1, glucose 82. Hemoglobin 12.3, white blood cell count 4800 with 182,000 platelets. The patient ambulated in the hallways without difficulty and there was good hemostasis at the right femoral site of catheterization. He was discharged to home on the following medications: Plavix 75 mg daily, Zetia 5 mg daily, finasteride or Proscar 5 mg daily, metoprolol tartrate 25 mg daily, pantoprazole 40 mg b.i.d., terazosin 10 mg at bedtime and p.r.n. sublingual nitroglycerin. I will plan to see the patient in followup on 06/18/2018 at 14:20. [place] [address] DISCHARGE SUMMARY Name: ELLAYANNARAVI Room: [address] [place] Mariee#: [id number] Admission: 04/18/18 Attend Phys: Jose Haider MD, Discharge: 04/19/18 Date of : 39 Report #: [id number] Thus, the patient is discharged to home in stable condition on the aforementioned medications with followup as iterated above. <ELECTRONICALLY SIGNED> By: Jose Haider MD, [facility] 04/19/18 1658 1612 1650Jodom Haider MD, FACC /nt
== END 2018-04-19 11:30 | disposition home or self-care (01) ==
LOC: M.CL 08:30 → M.TBA-CV 11:17 → M.2W 17:14
PROVIDERS: ADMIT Internal Medicine
DX: I25.110 Atherosclerotic heart disease of native coronary artery with unstable angina pectoris (principal); E78.5 Hyperlipidemia, unspecified; I10 Essential (primary) hypertension; R94.39 Abnormal result of other cardiovascular function study; J44.9 Chronic obstructive pulmonary disease, unspecified; Z87.891 Personal history of nicotine dependence; Z79.01 Long term (current) use of anticoagulants

== ENCOUNTER 2018-05-03 11:20 | Observation (INO) | payer OTHER ==
[2018-05-03] VITALS (13 sets, daily range): BP systolic 109–169; BP diastolic 58–89
[~2018-05-03] VITALS: Ht 185.4 cm; Wt 101.6 kg
[2018-05-03 11:44] LABS: ABSOLUTE EOSINOPHILS 0.1 thou/uL (0.0-0.7); ABSOLUTE LYMPHOCYTES 1.1 thou/uL (0.8-5.3); ABSOLUTE MONOCYTES 0.3 thou/uL (0.0-1.2); ABSOLUTE NEUTROPHILS 3.2 thou/uL (1.6-8.1); BASOPHILS 0.8 %; EOSINOPHILS 2.9 %; HEMATOCRIT 40.8 % (42.0-52.0); HEMOGLOBIN 13.7 gm/dL (14.0-18.0); LYMPHOCYTES 22.4 %; MCH 29.3 pg (26.0-34.0); MCHC 33.6 g/dL (28.0-37.0); MCV 87.2 fL (80.0-100.0); MONOCYTES 5.9 %; MPV 7.5 fl. (7.2-11.1); NUCLEATED RBCS 0 /100WBC; PLATELET COUNT* 231 thou/uL (150-400); RBC 4.69 mil/uL (4.50-6.00); RDW-CV 14.3 % (10.5-14.5); WBC 4.7 thou/uL (4.0-11.0)
[2018-05-03 11:50] LABS: ANION GAP 5 mmol/L (7-16); BUN 12 mg/dL (7-18); CALCIUM 9.1 mg/dL (8.5-10.1); CHLORIDE 105 mmol/L (98-107); CO2 29 mmol/L (21-32); CREATININE 1.1 mg/dL (0.6-1.3); GLUCOSE 95 mg/dL (70-99); SODIUM 139 mmol/L (136-145)
[2018-05-03 11:52] LABS: APTT 26.2 Seconds (25.0-31.3); INR 0.9; PROTIME 9.5 Seconds (9.20-11.50)
[2018-05-03 12:13] LABS: ALBUMIN 3.8 g/dL (3.4-5.0); ALKALINE PHOSPHATASE 78 U/L (46-116); CK-MB MASS 1.5 ng/mL (<0.5-3.6); LIPASE 81 U/L (73-393); MAGNESIUM 2.2 mg/dL (1.8-2.4); NT-PRO BRAIN NAT PEPTIDE 37 pg/mL (<300); SGOT 12 U/L (15-37); SGPT 19 U/L (30-65); TOTAL BILIRUBIN 0.5 mg/dL (<0.1-1.0); TOTAL PROTEIN 7.8 g/dL (6.4-8.2); TROPONIN-I LEVEL <0.06 ng/mL (<0.06)
--- NOTE | 2018-05-03 12:59 | NUR ---
REPORT GIVEN TO ROSALBA MIGUEL AT 1255 05/03/18.
--- NOTE | 2018-05-03 13:34 | EKG ---
[place] [address] ELECTROCARDIOGRAM REPORT Name: RAVI FALK Room: [address] ADM IN M.R.#: [id number] Admission: 05/03/18 Attend Phys: Yoselyn Acevedo Discharge: Date of : 38 Report #: [id number] THIS REPORT FOR: //name// [facility] ED Test Date: 2018-05-03 Test Time: 11:24:40 Pat Name: RAVI FALK Department: Room: [facility] Gender: M Qa Auditor: VANDANA : 1940 Requested By: Biju Bobo Order Number: [id number] MD: Steven Pinedo Measurements Intervals [place] Rate: 83 P: 59 [place]: 171 QRS: 32 QRSD: 86 T: 56 QT: 362 QTc: 426 Interpretive Statements Sinus rhythm Borderline low voltage, extremity leads Baseline wander in lead(s) II,III,aVR,aVF Compared to ECG 04/19/2018 04:02:59 No significant changes Electronically Signed On 05-03-2018 13:33:43 WINE STEWARD/STEWARDESS by Steven Pinedo [email or web address] <ELECTRONICALLY SIGNED> By: Steven Pinedo MD, [facility] 05/03/18 1333 1124 1124 Steven Pinedo MD, [facility] /EPI
--- NOTE | 2018-05-03 15:20 | CARD ---
[facility] [address] [place] [address] CARDIAC CATH REPORT Name: DEYARAVI Shanna Room: [address] [place] Mariee#: [id number] Admission: 05/03/18 Attend Phys: Yoselyn Acevedo Discharge: Date of : 38 Report #: [id number] THIS REPORT FOR: //name// APPROVED REPORT Study performed: 05/03/2018 13:01:50 Patient Details The patient is a 77 year-old male Event Personnel Jose Haider Glove Sewer, Marylou Ascencio RN Route Salesman, Mckenna Jones Monitor, Parvez Bosch Scrub Procedures Performed Left Heart Cath w/or w/o Coronaries [id number] [facility] Hemostasis w/ Mynx Indication Chest pain Risk Factors Hypercholesterolemia, Hypertension Previous Procedures/Diagnoses Previous PCI Procedure Narrative The patient was brought electively to the Cardiac Catheterization Laboratory and was prepped and draped in a sterile manner. The right femoral was infiltrated with 2% Lidocaine subcutaneous anesthesia. A [place] 6 FR sheath was inserted into the RFA. Coronary angiography was performed using coronary diagnostic catheters. The right coronary system was accessed and visualized with a JR4 catheter. The left coronary system was accessed and visualized with a JL4 catheter. The left ventricle was accessed and visualized with a Straight PIG catheter. Left ventricular/Aortic Valve gradient assessed via catheter pullback. Left ventriculogram was performed in [place] projection. Pre-demployment femoral angiogram was performed . Closure device was deployed with a 6 [place] [address] CARDIAC CATH REPORT Name: DEYARAVI Shanna Room: [address] [place] Mariee#: [id number] Admission: 05/03/18 Attend Phys: Yoselyn Acevedo Discharge: Date of : 38 Report #: [id number] Mynx. The patient tolerated the procedure well and there were no complications associated with the procedure. There was no hematoma. Intraoperative Conscious Sedation Sedation start time: 1343 Case end Time: 1414 Fentanyl 25 mcg Fluoro Time: 3.0 minutes Dose: DAP 16466 cGycm2 715 mGy Contrast Type and Amount: Visipaque 130 ml Diagnostic Cath Left Main 0% narrowing LAD 30% mid and 40% distal LAD narrowing with widely patent proximal and mid LAD stents Circumflex 40% mid vessel narrowing with a widely patent distal circumflex stent Right Coronary Widely patent proximal mid and acute marginal stents with 20% distal right coronary narrowing Left Ventriculography The left ventricle is normal in size with normal contractility. The left ventricular ejection fraction is estimated to be 65%. Left ventricular wall motion abnormalities are not present. There is no mitral insufficiency. Hemodynamics The aortic pressure is 157/74 mmHg with a mean of 108 mmHg. The left ventricular pressure is 153/1 mmHg with a mean of mmHg. The left ventricular end diastolic pressure is 12 mmHg. There was no gradient across the aortic valve upon pullback. Conclusion #1 Coronary artery disease characterized by the following: A 30% mid LAD narrowing with 40% distal LAD narrowing with widely patent proximal and mid LAD stents B 40% mid circumflex narrowing with widely patent distal circumflex stent and 50% narrowing of the takeoff of the [place] [address] CARDIAC CATH REPORT Name: RAVI FALK [address] [id number] Admission: 05/03/18 Attend Phys: Yoselyn Acevedo Discharge: Date of : 38 Report #: [id number] C dominant right coronary artery with widely patent proximal mid and acute marginal stents with 20% distal right coronary narrowing #2 normal left ventricular systolic function, estimate ejection fraction being 65% #3 mild systemic systolic hypertension Recommendations Cardiac Risk Reduction Program Aggressive Medical Therapy Diagnostic Cath Approved by: Jose Haider MD Date/Time: 05/03/2018 15:18:33 <ELECTRONICALLY SIGNED> By: Jose Haider MD, [facility] 05/03/18 1520 1520 1520hn Joe Haider MD, FACC /INF
--- NOTE | 2018-05-03 18:53 | NUR ---
PT C/O OF BACK PAIN. PT REFUSES TYLENOL AT THIS TIMES. PT REPORTS HE WOULD LIKE TO GET UP TO HELP WITH PAIN. PT COMPLIANT WITH BED REST. VSS.
[2018-05-04] VITALS (7 sets, daily range): BP systolic 121–154; BP diastolic 69–79
--- NOTE | 2018-05-04 05:32 | NUR ---
PT ALERT AND ORIENTED X4. VSS. LUNCHROOM MONITOR IN PLACE TRACING SR. O2 SAT IS AT 95% ON ROOM AIR. DENIES CHEST PAIN. POST CATH SITE INTACT AND DRY. COMPLAINED OF HEAD AND BACK PAIN AT 7/10 ON PAIN SCALE, RELIEVED BY FENTANYL GIVEN PER MAR. WAS ABLE TO SLEEP THROUGH THE NIGHT. CALL LIGHT WITHIN REACH. HOURLY ROUNDING DONE FOR PT SAFETY.
[2018-05-04 05:36] LABS: ABSOLUTE EOSINOPHILS 0.2 thou/uL (0.0-0.7); ABSOLUTE LYMPHOCYTES 1.2 thou/uL (0.8-5.3); ABSOLUTE MONOCYTES 0.4 thou/uL (0.0-1.2); BASOPHILS 0.4 %; EOSINOPHILS 4.3 %; HEMATOCRIT 34.4 % (42.0-52.0); LYMPHOCYTES 25.2 %; MCH 29.8 pg (26.0-34.0); MCV 87.8 fL (80.0-100.0); MONOCYTES 8.1 %; MPV 7.7 fl. (7.2-11.1); NUCLEATED RBCS 0 /100WBC; PLATELET COUNT* 197 thou/uL (150-400); RBC 3.92 mil/uL (4.50-6.00); WBC 4.8 thou/uL (4.0-11.0)
[2018-05-04 05:57] LABS: HEMOGLOBIN 11.7 gm/dL (14.0-18.0)
[2018-05-04 06:37] LABS: CALCIUM 9.3 mg/dL (8.5-10.1); CREATININE 1.1 mg/dL (0.6-1.3); POTASSIUM 4.1 mmol/L (3.5-5.1)
--- NOTE | 2018-05-04 07:45 | NUR ---
ASSUMED CARE OF PT ASSESSED AND DOCUMENTED. PT IS ON CARDIAC MONITER TRACING SR HR 73. VSS WNL. PT IS AFEBRILE. HE IS ON R AIR WITH CLEAR LUNGS. CATH SITE DRSG IS CLEAN DRY AND INTACT. PT IS A&O WITH NO C/O PAIN. BED IS IN LOW POSITION CALL LIGHT IS IN REACH. WM.
--- NOTE | 2018-05-04 10:22 | CON ---
[address] [address] CONSULTATION Name: RAVI FALK Room: [address] Genesis Mariee#: [id number] Admission: 05/03/18 Attend Phys: Yoselyn Acevedo Discharge: Date of : 38 Report #: [id number] THIS REPORT FOR: //name// CC: Jose Acevedo DO DATE OF SERVICE: 05/03/2018 HISTORY OF PRESENT ILLNESS: The patient is a very pleasant 77-year-old male with complex coronary artery disease, status post multiple prior percutaneous coronary interventions, most recently approximately 2 weeks ago to the mid LAD and 3 stents deployed in the proximal, mid, and acute marginal portions of the right coronary artery. He had done well until last night when he began to note recurrent chest discomfort and discomfort in the right upper back, typical of his prior angina. It has waxed and waned since that time with associated shortness of breath, but without nausea or diaphoresis. He has mild discomfort at the time of my evaluation. The patient has underlying hyperlipidemia and hypertension. PAST MEDICAL AND SURGICAL HISTORY: Remarkable for chronic pulmonary disease, vertigo, prior back surgery and multiple prior stent deployments. ALLERGIES: There are multiple medication allergies described including to NATALIE INHIBITORS, ASPIRIN, TICAGRELOR, AMLODIPINE, MORPHINE, SIMVASTATIN, and TETANUS TOXOID. CURRENT MEDICATIONS: Include terazosin, Zetia, pantoprazole, finasteride, metoprolol tartrate, p.r.n. nitroglycerin which gives him a significant headache and Plavix 75 mg daily. By virtue of aspirin allergy, he is on single antiplatelet therapy. SOCIAL HISTORY: The patient is . He denies cigarette use. REVIEW OF SYSTEMS: Remarkable for the following: PULMONARY: He notes mild dyspnea on exertion, which is chronic. CARDIAC: There is a history of chest pain triggering this admission. MUSCULOSKELETAL: Mild chronic arthritic complaints. Remainder is unremarkable. PHYSICAL EXAMINATION: GENERAL: Reveals an elderly male in mild distress. VITAL SIGNS: Blood pressure is 130/70, pulse rate 74, respirations are 18 [place] [address] CONSULTATION Name: RAVI FALK Room: [address] M.R.#: [id number] Admission: 05/03/18 Attend Phys: Yoselyn Acevedo Discharge: Date of : 38 Report #: [id number]. NECK: Jugular venous pressure is normal. Carotids are 1 to 2+. CHEST: Clear. CARDIAC: Reveals normal first and second heart sounds with a soft systolic murmur. ABDOMEN: Mildly obese and nontender. EXTREMITIES: Without edema with intact femoral, pedal and radial pulses. Electrocardiogram reveals sinus rhythm and no acute ischemic changes. LABORATORY DATA: Reveals sodium of 139, potassium 4.0, BUN 12, creatinine 1.1. Hemoglobin 13.7, white blood cell count 4700 with 231,000 platelets. Protime 9.5, INR 0.9, PTT 26.2. IMPRESSION: 1. Coronary artery disease, status post recent stenting of the left anterior descending and right coronary artery. 2. Recurrent chest and back discomfort typical of his prior ischemic pain. 3. Hyperlipidemia. 4. Hypertension. 5. Obstructive sleep apnea. 6. Multiple medication allergies including NATALIE inhibitors, aspirin, ticagrelor, amlodipine, morphine, and simvastatin. RECOMMENDATIONS: Given the recurrence of discomfort similar to his prior ischemic pain and the recent multivessel stenting, I would recommend recatheterization to define current coronary anatomy and prospects for subsequent therapeutic modification. This has been discussed with the patient and family. Critical care time is 40 minutes from 12:18 to 12:58. <ELECTRONICALLY SIGNED> By: Jose Haider MD, FACC 05/04/18 1022 [id number] [id number] Haider MD, FACC /nt
[2018-05-04] MEDS ORDERED: FLEXERIL PO (11:30)
--- NOTE | 2018-05-04 12:39 | NUR ---
CALLED CARDIOLOGY SPOKE WITH GANGA TOLD HER NEED APPT FOR F-UP WITH [facility] THAT ORDER WE HAVE WAS VERBAL NOTHING IN ORDERS.
--- NOTE | 2018-05-04 12:58 | NUR ---
PT D/C'D TO HOME. ALL CONSULTS OK WITH D/C. EDUCATION GIVEN RE FOLLOW-UPS, MEDICATIONS, AND DRS ORDERS. SCRIPT GIVEN. PT DID NOT WANT EDUCATION AND REFUSED TO GO DOWN IN A WC OR IN THE ELEVATER. HE STATES THE ELEVATOR DOESNT WORK RIGHT AND CAUSES HIM ANXIETY. ZACH AND ROSS CABRAL D/C'D/ PT WALKED DOWN ACCOMPANIED BY STAFF.
== END 2018-05-04 13:08 | disposition home or self-care (01) ==
LOC: M.ERS 11:20 → M.2W 12:11 → M.TBA-ER 12:11 → M.2W 12:11
PROVIDERS: Family Medicine; ADMIT Internal Medicine
DX: I25.119 Atherosclerotic heart disease of native coronary artery with unspecified angina pectoris (principal); E78.5 Hyperlipidemia, unspecified; I10 Essential (primary) hypertension; G47.33 Obstructive sleep apnea (adult) (pediatric); K21.9 Gastro-esophageal reflux disease without esophagitis; Z88.5 Allergy status to narcotic agent; Z88.1 Allergy status to other antibiotic agents; Z88.8 Allergy status to other drugs, medicaments and biological substances; Z95.5 Presence of coronary angioplasty implant and graft; Z79.899 Other long term (current) drug therapy

== ENCOUNTER → 2019-10-02 | Outpatient (CLI) | payer OTHER ==
[~2019-10-02] VITALS: Ht 185.4 cm; Wt 100.7 kg
[2019-10-02] VITALS (10 sets, daily range): BP systolic 146–1157; BP diastolic 67–96
[~2019-10-02] MED LIST changes: +FLEXERIL PO
[2019-10-02 08:38] LABS: HEMATOCRIT 40.4 % (42.0-52.0); HEMOGLOBIN 14.2 gm/dL (14.0-18.0); MCH 30.7 pg (26.0-34.0); MCHC 35.2 g/dL (28.0-37.0); MCV 87.4 fL (80.0-100.0); MPV 7.8 fl. (7.2-11.1); RBC 4.62 mil/uL (4.50-6.00); RDW-CV 13.5 % (10.5-14.5); WBC 4.6 thou/uL (4.0-11.0)
[2019-10-02 08:54] LABS: ANION GAP 8 mmol/L (7-16); APTT 26.8 Seconds (25.0-31.3); BUN 12 mg/dL (7-18); CHLORIDE 106 mmol/L (98-107); CO2 26 mmol/L (21-32); GLUCOSE 96 mg/dL (70-99); POTASSIUM 3.7 mmol/L (3.5-5.1); SODIUM 140 mmol/L (136-145)
[2019-10-02 08:59] LABS: ALBUMIN 3.6 g/dL (3.4-5.0); ALKALINE PHOSPHATASE 72 U/L (46-116); CHOLESTEROL 166 mg/dL (<200); HDL CHOLESTEROL 40 mg/dL (>40); LDL CHOLESTEROL 108 mg/dL (<100); SGOT 17 U/L (15-37); SGPT 25 U/L (30-65); TC:HDL 4.2 Ratio (Not establshd); TOTAL BILIRUBIN 0.3 mg/dL (<0.1-1.0); TOTAL PROTEIN 7.4 g/dL (6.4-8.2); TRIGLYCERIDE 94 mg/dL (<150); VLDL 19 mg/dL (<40)
[2019-10-02 09:03] LABS: SERUM ASSESSMENT Clear
--- NOTE | 2019-10-03 08:57 | EKG ---
[place] [address] ELECTROCARDIOGRAM REPORT Name: RAVI FALK Room: [facility]#: [id number] Admission: 10/02/19 Attend Phys: Madi Spencer Discharge: Date of : 38 Date of Service: 10/02/19814 Report #: [id number] THIS REPORT FOR: //name// [facility] Test Date: 2019-10-02 Test Time: 08:15:50 Pat Name: RAVI FALK Department: Room: Gender: Clean Up Supervisor: : 1940 Requested By: Jose Haider Order Number: [id number] Reading MD: Darryl Franklin Measurements Intervals [place] Rate: 69 P: 61 MN: 182 QRS: -33 QRSD: 83 T: 61 QT: 377 QTc: 404 Interpretive Statements Sinus rhythm Left axis deviation Low voltage, extremity leads Compared to ECG 05/03/2018 11:24:40 Left-axis deviation now present Electronically Signed On 10-03-2019 8:56:19 CDT by Darryl Franklin [email or web address] <ELECTRONICALLY SIGNED> By: Darryl Franklin MD, FACC 10/03/19 0856 4 4 Darryl Franklin MD, [facility] /EPI
--- NOTE | 2019-10-03 11:49 | CARD ---
[address] [address] CARDIAC CATH REPORT Name: RAVI FALK Room: [facility] BarrazaXavierSrinivasXavier#: [id number] Admission: 10/02/19 Attend Phys: Jose Haider MD, Discharge: Date of : 38 Report #: [id number] THIS REPORT FOR: //name// cc: Ramsey Valenzuela Mark DO ~ APPROVED REPORT Study performed: 10/02/2019 09:24:31 Patient Details Patient Status: Out-Patient Room #: The patient is a 78 year-old male Event Personnel Jose Haider Hand Mixer, Aide Reilly RN Tissue Recovery TechnicianHiro Brad RCIS Monitor, Damian Danielle RTR Scrub Procedures Performed Left heart catheterization left ventriculography and selective coronary arteriography Indication Positive stress test Previous Procedures/Diagnoses Previous PCI Procedure Narrative The patient was brought electively to the Cardiac Catheterization Laboratory and was prepped and draped in a sterile manner. The right femoral was infiltrated with 2% Lidocaine subcutaneous anesthesia. A Odonnell 6 FR sheath was inserted into the RFA. Coronary angiography was performed using coronary diagnostic catheters. The right coronary system was accessed and visualized with a JR4 catheter. The left coronary system was accessed and visualized with a JLF catheter. The left ventricle was accessed and visualized with a PIG Tail catheter. Left ventricular/Aortic Valve gradient assessed via catheter pullback. Pre-demployment femoral angiogram was performed . Closure device was deployed with a 6 Fr Odonnell 6 FR. The patient tolerated the procedure well and there were no complications associated with the procedure. There was no hematoma. Intraoperative Conscious Sedation Sedation start time: 1001 Case end Time: 1022 Fentanyl 1.0 [place] [address] CARDIAC CATH REPORT Name: RAVI FALK Room: [facility]#: [id number] Admission: 10/02/19 Attend Phys: Jose Haider MD, Discharge: Date of : 38 Report #: [id number] Contrast Type and Amount: Visipaque 75 ml Coronary Angiography The patient's coronary anatomy is right dominant. Diagnostic Cath Left Main 0% narrowing LAD 30% proximal and mid LAD narrowing with 50% distal LAD narrowing Circumflex 40% mid vessel narrowing and 40% proximal second marginal narrowing Right Coronary 30% proximal and mid vessel narrowing with 30% distal narrowing Left Ventriculography The left ventricle is normal in size with normal contractility. The left ventricular ejection fraction is estimated to be 60%. Left ventricular wall motion abnormalities are not present. There is no mitral insufficiency. Hemodynamics The aortic pressure is 140/70 mmHg with a mean of 82 mmHg. The left ventricular pressure is 12 mmHg with a mean of mmHg. There was no gradient across the aortic valve upon pullback. Conclusion 1. Moderate coronary artery disease characterized by the following: A 30% proximal and mid LAD narrowing with 50% distal LAD stenosis B 40% mid circumflex narrowing with 40% proximal second marginal narrowing C 30% proximal mid and distal right coronary narrowings 2. Normal left ventricular systolic function, estimated ejection fraction being 60% 3. Normal left-sided hemodynamic study. Recommendations Cardiac Risk Reduction Program [facility] [place] [address] CARDIAC CATH REPORT Name: RAVI FALK Room: [facility]#: [id number] Admission: 10/02/19 Attend Phys: Jose Haider MD, Discharge: Date of : 38 Report #: [id number] Diagnostic Cath Approved by: Jose Haider MD Date/Time: 10/03/2019 11:47:07 <ELECTRONICALLY SIGNED> By: Jose Haider MD, [facility] 10/03/19 1148 1148 [id number] Haider MD, [facility] /INF
== END | disposition home or self-care (01) ==
LOC: M.CL 07:16
PROVIDERS: ATTEND Internal Medicine
DX: R94.39 Abnormal result of other cardiovascular function study (principal); R07.9 Chest pain, unspecified; I25.110 Atherosclerotic heart disease of native coronary artery with unstable angina pectoris; I10 Essential (primary) hypertension; E78.5 Hyperlipidemia, unspecified; G47.30 Sleep apnea, unspecified; Z98.890 Other specified postprocedural states; Z79.899 Other long term (current) drug therapy; Z95.5 Presence of coronary angioplasty implant and graft; Z87.891 Personal history of nicotine dependence; Z88.8 Allergy status to other drugs, medicaments and biological substances